=== PATIENT | male | born 1970 | race Caucasian/White ===

== ENCOUNTER 2017-05-21 21:52 | Emergency (ER) | payer OTHER ==
[~2017-05-21] VITALS: Ht 177.8 cm; Wt 98.9 kg
--- NOTE | ~2017-05-21 | CR63 ---
[facility] A Service [facility] RADIOLOGY TEXT RESULTS PATIENT: DAVID GOLD JR LOCATION: SED : 72 UNIT #: [id number] AGE: [address]: Roni Sanchez MD SEX: M ORDER DR: [id number] [place] [id number] E MR#: [id number] Acc #: [id number] NAME: DAVID GOLD JR : 1970 SEX: M STUDY DATE/TIME: 05/21/2017 22:43 UNIT: SED ROOM: STUDY DESCRIPTION: CR Chest 2 View Attending Physician: Roni Sanchez M.D. Ordering Physician: Roni Sanchez M.D. Primary Care Physician: Bishop Herrera M.D. MEDICAL IMAGING REPORT This report is preliminary unless electronic signature is present. EXAM Chest x-ray 05/21/2017 HISTORY 46-year-old male in the ED complaining of 3 to 4 day history of cough, fever and chills. TECHNIQUE PA and lateral upright chest series. FINDINGS Postop changes aortic valve replacement. Heart size and pulmonary vascularity are within normal limits. The lungs are expanded and clear. No visible pulmonary infiltrate or pleural effusion. No change since 11/11/2008. IMPRESSION 1. No active disease. 2. Postop changes aortic valve replacement. 3. No change since 11/11/2008. Dictated by... Sudhir Higgins M.D. THIS IS AN ELECTRONICALLY VERIFIED REPORT Sudhir Higgins M.D. at 05/23/2017 2:44 AM JACQUELINEW/crissy TD: 05/22/2017 12:17 JOB #: [id number] [facility] A Service [facility] RADIOLOGY TEXT RESULTS PATIENT: DAVID GOLD JR LOCATION: SED : 72 UNIT #: [id number] AGE: [address]: Roni Sanchez MD SEX: M ORDER DR: MEDICAL IMAGING REPORT Page 1 of 1
[~2017-05-21 21:52] MED LIST: BAYER CHEWABLE81 MG PO; FLONASE 0.05% N16 G1; HYDROCODONE; METOPROLOL; NAPROXEN500 M1 PO; OMEPRAZOLE; ROBAXIN500 MG PO
[2017-05-21] MEDS ORDERED: TOPROL XL (22:05)
[2017-05-21] MEDS ORDERED: ASPIRIN81 M2 (22:06)
[2017-05-21] MEDS ORDERED: HYDROCODONE (22:06)
[2017-05-21] MEDS ORDERED: FLONASE 0.05% N16 G1 (22:06)
[2017-05-21] MEDS ORDERED: PRILOSEC (22:06)
== END 2017-05-21 23:56 | disposition home or self-care (01) ==
LOC: SED 21:52
DX: J20.9 Acute bronchitis, unspecified (principal); F17.210 Nicotine dependence, cigarettes, uncomplicated; Z88.5 Allergy status to narcotic agent
CPT/HCPCS: 71020; 94640; 99283